=== PATIENT | male | born 1970 | race Caucasian/White ===

== ENCOUNTER → 2018-01-25 | Outpatient (CLI) | payer OTHER ==
--- NOTE | 2018-01-25 11:06 | DIAGNOSTIC IMAGING REPORT ---
C-SPINE ROUTINE 4 OR 5 VIEWS CLINICAL HISTORY: 47 years-old Male presenting with CERVICALGIA. TECHNIQUE: Lateral, bilateral oblique, frontal, and open-mouth odontoid views of the cervical spine were obtained. COMPARISON: None. FINDINGS: Normal cervical lordosis. Vertebral bodies maintain normal height and alignment. Minimal intervertebral disc height loss may be present at C4-5 and C5-6, where there are small disc osteophyte complexes and minimal posterior bony spurring. No compression deformity or subluxation. Osseous neural foraminal narrowing evident on the right at C3-4 through C5-6 and minimally on the left at C5-6. Lateral masses of C1 articulate normally with C2. Normal predental interval. No prevertebral soft tissue swelling. IMPRESSION: Mild multilevel degenerative changes with right greater than left neural foraminal narrowing. No radiographic evidence of acute osseous injury of the cervical spine. Electronically signed by: Rome Ivan M.D. 01/25/2018 11:05 AM Dictated Date/Time: 01/25/2018 11:02 AM
== END | disposition home or self-care (01) ==
LOC: C.RAD 10:22
PROVIDERS: ATTEND Nurse Practitioner Family
DX: M48.02 Spinal stenosis, cervical region (principal)